=== PATIENT | female | born 1990 | race Hispanic/Latino ===

== ENCOUNTER 2023-09-26 21:19 | Emergency (ER) | payer SELFPAY ==
[2023-09-26 21:20] VITALS: BP 163/98; BMI 33.3
--- NOTE | 2023-09-26 23:20 | ED.GENMED ---
History of Present Illness
General
Chief Complaint: Ear Problem
Source: patient
Time Seen by Provider: 09/26/23 23:15
Travel History
Have you had any contact with someone who has COVID-19?: No
Do you have any symptoms of coronavirus? Fever > 100 degrees, chills, cough, shortness of breath, sore throat, loss of taste or smell, muscle aches, or headache?: No
History of Present Illness
History of Present Illness:
33-year-old female presenting the emergency department for evaluation of right-sided ear pain x 5 days, initially did notice some drainage from the right ear but states this is since resolved. She notes other associated URI-like symptoms including
some sinus congestion and stating that her seasonal allergies also seem to be causing her some dry mouth/throat sensation. States has not checked for fever but has felt warm over the last few days. Denies any foreign body sensation or auditory
changes. No other concerns at this time.
Past History
Past History
ED Past Medical History: HTN and NIDDM
ED Past Surgical History: Appendectomy and
Social History
Tobacco: Non-smoker
Alcohol: None
Drug: None
Personal:
Living: with family
Review of Systems
Review of Systems
All Other Systems: ROS reviewed and negative except as documented in HPI and ROS
Phy Exam
Physical Exam
Physical Exam:
GENERAL: Alert , in no apparent distress but does appear uncomfortable
EYE: conjunctiva clear
NECK: Supple, no significant adenopathy.
ENT: o/p clr, mmm. Right TM: Moderate erythema without bulging, left TM clear without any bulging or effusions, no otic debris within either canal. No mastoid tenderness, erythema or edema bilaterally
NEUROLOGICAL: Alert and oriented
SKIN: Warm and dry, skin intact.
MUSCULOSKELETAL: well perfused.
PSYCH: Normal and appropriate interaction.
Scores
Heart Failure Risk
Heart Failure Risk Score: Not Applicable
Heart Score for Chest Pain Patients
STEMI patient?: Not applicable
Withdrawal Assessment of Alcohol
Withdrawal Assessment Completed?: Not applicable
Course
Orders/Labs/Results
Orders:
Orders
09/26/23 23:19
Amoxicillin [Amoxil] 500 mg PO NOW STA
Ibuprofen [Motrin] 600 mg PO NOW STA
Vital Signs
Initial and Last Documented VS:
Initial Vital Signs
Temp Pulse Resp BP Pulse Ox
98.4 F 84 16 163/98 100
09/26/23 21:20 09/26/23 21:20 09/26/23 21:20 09/26/23 21:20 09/26/23 21:20
Last Documented Vital Signs
Temp Pulse Resp BP Pulse Ox
98.4 F 84 16 163/98 100
09/26/23 21:20 09/26/23 21:20 09/26/23 21:20 09/26/23 21:20 09/26/23 21:20
MDM/Problems Addressed
Differential Diagnosis Includes:
Otitis media, otitis externa, allergic rhinitis, TM perforation
MDM/Problems Addressed:
33-year-old female present emergency department for evaluation of 4 days of right-sided ear pain. She also has some mild upper respiratory symptoms. Patient appears quite uncomfortable on my exam. Based off her exam I suspect a right-sided otitis
media. Will treat with amoxicillin and can take Motrin/Tylenol as needed for pain. She is otherwise stable for discharge home. Patient already has arranged outpatient follow-up with her primary care provider for this coming Sunday.
*Pulse Oximetry
Patient hypoxic: no
*Critical Care Note
Total Time (30-74mins, 75-104mins- exclusive of procedures): Not Applicable
ED Attending Note
-
Portions of this chart may have been created with voice recognition software.� Occasional wrong word or��sound alike� substitutions may have occurred due to the inherent limitations of voice recognition software.
Discharge Plan
Departure
Patient Disposition: Home (Routine Discharge)
Date of Disposition: 09/26/23
Time of Disposition: 23:20
Patient with high blood pressure during this ER visit?: Yes
Discharge Problem:
Otitis media, right
Instructions: Serous Otitis Media (DC)
Prescriptions:
New
amoxicillin 500 mg tablet
500 mg PO BID Qty: 19 0RF
No Action
metformin
500 mg PO DAILY
cephalexin 500 mg capsule
500 mg PO Q6H 7 Days Qty: 28 0RF
Interventions
Interventions:
*Risk Screen - Suicide Last Done: 09/26/23 21:20
*Neglect/Abuse Screening Last Done: 09/26/23 21:20
ED- Fall Risk Assessment Last Done: 09/26/23 21:20
Discharge Date and Time
Print Language: GERMAN
[2023-09-26] MEDS: MOTRIN 600 MG PO (23:38)
[2023-09-26] MEDS: AMOXIL 500 MG PO (23:38)
[2023-09-26 23:48] VITALS: BP 139/91
== END 2023-09-26 23:49 | disposition home or self-care (01) ==
LOC: EMR 21:19
PROVIDERS: EMERGENCY PHYSICIAN Student in an Organized Health Care Education/Training Program
DX: H66.91 Otitis media, unspecified, right ear (principal); R09.81 Nasal congestion; R68.2 Dry mouth, unspecified; R03.0 Elevated blood-pressure reading, without diagnosis of hypertension; E11.9 Type 2 diabetes mellitus without complications; I10 Essential (primary) hypertension; Z79.84 Long term (current) use of oral hypoglycemic drugs
CPT/HCPCS: 99283

== ENCOUNTER → 2023-10-29 06:27 | Outpatient (REF) | payer OTHER, SELFPAY ==
[2023-10-29 07:06] LABS: % Basophils 0.7 % (0-2); % Eosinophils 2.2 % (0-6); % Immature Granulocytes 0.4 % (0-0.5); % Lymphocytes 31.4 % (20.5-51.1); % Monocytes 6.8 % (1.7-9.3); % Neutrophils 58.5 % (42.2-75.2); Absolute Basophils 0.1 10^3/uL (0-0.2); Absolute Eosinophils 0.2 10^3/uL (0-0.7); Absolute Lymphocytes 2.6 10^3/uL (1.2-3.4); Absolute Monocytes 0.6 10^3/uL (0.1-0.6); Absolute Neutrophils 4.8 10^3/uL (1.4-6.5); Hematocrit 39.2 % (37.0-47.0); Hemoglobin 13.7 g/dL (12.0-16.0); Mean Corp Hgb Conc. 34.9 g/dL (33.0-37.0); Mean Corpuscular Hgb 28.1 pg (27.0-31.0); Mean Corpuscular Volume 80.3 fL (81.0-99.0); Nucleated Red Blood Cells % 0 %; Platelet Count 213 10^3/uL (130-400); Red Blood Cell Count 4.88 10^6/uL (4.20-5.40); Red Cell Dist. Width 13.5 % (11.5-14.5); White Blood Cell Count 8.3 10^3/uL (4.8-10.8)
[2023-10-29 07:44] LABS: ALT (SGPT) 19 U/L (0-35); AST (SGOT) 29 U/L (14-36); Albumin 4.3 g/dl (3.5-5.0); Alkaline Phosphatase 128 U/L (38-126); Blood Urea Nitrogen 14 mg/dl (7-17); Calcium 9.3 mg/dl (8.4-10.2); Carbon Dioxide 24 mmol/L (22-30); Chloride 106 mmol/L (98-107); Glucose 117 mg/dl (70-99); Sodium 140 mmol/L (135-145); Total Bilirubin 0.3 mg/dl (0.2-1.3); Total Protein 7.2 g/dl (6.3-8.2); eGFR > 60.00
[2023-10-29 09:24] LABS: Glycohemoglobin (HgbA1c) 5.5 % (4.0-5.6)
== END ==
LOC: CLINIC 06:27
PROVIDERS: ATTENDING PHYSICIAN Nurse Practitioner Adult Health
DX: E28.2 Polycystic ovarian syndrome (principal); J30.9 Allergic rhinitis, unspecified
CPT/HCPCS: 36415; 80053; 83036; 85025

== ENCOUNTER → 2024-10-06 14:18 | Outpatient (REF) | payer OTHER, SELFPAY ==
[2024-10-12 03:28] LABS: HPV, High Risk Not Detected; HPV, High Risk Source Cervical
== END ==
LOC: CLINIC 14:18
PROVIDERS: ATTENDING PHYSICIAN Nurse Practitioner Adult Health
DX: R10.2 Pelvic and perineal pain (principal); Z12.4 Encounter for screening for malignant neoplasm of cervix
CPT/HCPCS: 87491; 87591; 87624

== ENCOUNTER → 2024-10-13 06:44 | Outpatient (REF) | payer OTHER, SELFPAY ==
[2024-10-13 07:50] LABS: Hematocrit 40.6 % (37.0-47.0); Hemoglobin 14.2 g/dL (12.0-16.0); Mean Corpuscular Hgb 29.5 pg (27.0-31.0); Mean Corpuscular Volume 84.4 fL (81.0-99.0); Mean Platelet Volume 10.5 fL (7.4-10.4); Platelet Count 214 10^3/uL (130-400); Red Blood Cell Count 4.81 10^6/uL (4.20-5.40); Red Cell Dist. Width 12.7 % (11.5-14.5); White Blood Cell Count 7.9 10^3/uL (4.8-10.8)
[2024-10-13 08:28] LABS: ALT (SGPT) 26 U/L (0-35); AST (SGOT) 27 U/L (14-36); Albumin 4.2 g/dl (3.5-5.0); Alkaline Phosphatase 142 U/L (38-126); Blood Urea Nitrogen 9 mg/dl (7-17); Calcium 8.9 mg/dl (8.4-10.2); Carbon Dioxide 26 mmol/L (22-30); Chloride 110 mmol/L (98-107); Glucose 137 mg/dl (70-99); Potassium 4.5 mmol/L (3.5-5.1); Sodium 142 mmol/L (135-145); Total Bilirubin 0.4 mg/dl (0.2-1.3); Total Protein 7.2 g/dl (6.3-8.2); eGFR > 60.00
[2024-10-13 09:00] LABS: TSH Reflex To Free T4 2.28 uIU/ml (0.47-4.68)
== END ==
LOC: CLINIC 06:44
PROVIDERS: ATTENDING PHYSICIAN Nurse Practitioner Adult Health
DX: R10.2 Pelvic and perineal pain (principal)
CPT/HCPCS: 36415; 80053; 84443; 85027

== ENCOUNTER → 2024-10-17 08:07 | Outpatient (REF) | payer OTHER, SELFPAY | LOC: CLINIC 08:07 | PROVIDERS: ATTENDING PHYSICIAN Nurse Practitioner Adult Health | DX: R10.2 Pelvic and perineal pain (principal) | CPT/HCPCS: 76830; 76856 ==